=== PATIENT | male | born 1945 | race Two or more races ===

== ENCOUNTER 2017-03-14 05:51 | Day surgery (SDC) | payer MEDICARE, OTHER ==
--- NOTE | 2017-03-13 13:12 | Pre-Procedure Note/Attestation ---
Pre-Procedure Note/Attestation Complete Prior to Procedure Planned Procedure: right Procedure Narrative: . CATARACT EXTRACTION WITH PHACO AND PC IOL IMPLANTATION, RIGHT EYE. 2.MALYUGIN RING INSERTION, RIGHT EYE FOR FLOPPY IRIS SYNDROME. 3.COMPLEX CATARACT , RIGHT EYE Indications for Procedure Pre-Operative Diagnosis: 1. CATARACT ,RIGHT EYE. 2. FLOPPY IRIS SYNDROME,RIGHT EYE 3. COMPLEX CATARACT , RIGHT EYE. Attestation I attest that I discussed the nature of the procedure; its benefits; risks and complications; and alternatives (and the risks and benefits of such alternatives ), prior to the procedure, with the patient (or the patient's legal franchise sales representative). I attest that, if there was a reasonable possibility of needing a blood transfusion, the patient (or the patient's legal franchise sales representative) was given the [facility] standardized written summary, pursuant to the [place] Blood Safety Act ([place] Health and Safety Code # 1645, as amended). I attest that I re-evaluated the patient just prior to the surgery and that there has been no change in the patient's H&P, except as documented below: CHRIS GARCIA Mar 13, 2017 13:12
[2017-03-14] VITALS (9 sets, daily range): BP systolic 127–145; BP diastolic 57–89
[~2017-03-14] VITALS: Ht 160 cm; Wt 59.0 kg
[~2017-03-14 05:51] MED LIST: Diclofenac Sod 0.1% Op Soln ONE; GABAPENTIN600 MG ORAL; NEXIUM40 MG ORAL; Phenylephrine 10% Opth Soln 5ml ONE; Tetracaine 0.5% Opth Soln ONE; Tropicamide 1% Opth Soln ONE; Vigamox Opth Soln ONE
[2017-03-14] MEDS: Phenylephrine 10% Opth Soln 5ml RIGHT EYE SCH ×3 (06:22→06:41)
[2017-03-14] MEDS: Vigamox Opth Soln RIGHT EYE SCH ×3 (06:23→06:42)
[2017-03-14] MEDS: Tetracaine 0.5% Opth Soln RIGHT EYE SCH ×3 (06:23→06:42)
[2017-03-14] MEDS: Diclofenac Sod 0.1% Op Soln RIGHT EYE SCH ×3 (06:23→06:42)
[2017-03-14] MEDS: Tropicamide 1% Opth Soln RIGHT EYE SCH ×3 (06:23→06:42)
[2017-03-14] MEDS ORDERED: acetaZOLAMIDE 125mg tab ORAL ONE (06:30)
[2017-03-14] MEDS ORDERED: BSS 500ml btl ONE (06:58)
[2017-03-14] MEDS ORDERED: Dexamethasone 4mg/ml vial ONE (06:58)
[2017-03-14] MEDS ORDERED: Lidocaine 1% MPF 10mg/ml 5ml ONE (06:58)
[2017-03-14] MEDS ORDERED: Sodium Hyaluronate 10 mg/ml 0.85ml ONE (06:59)
[2017-03-14] MEDS ORDERED: EPINEPHrine 1mg/1ml Amp ONE (06:59)
[2017-03-14] MEDS ORDERED: Carbachol 0.01% Op Soln 1.5ml vial ONE (06:59)
[2017-03-14] MEDS ORDERED: Povidone-Iodine 5% opth solution ONE (06:59)
[2017-03-14] MEDS ORDERED: BSS 15ml BTL ONE (06:59)
[2017-03-14] MEDS ORDERED: NS Irrig 1000ml ONE (07:30)
[2017-03-14] MEDS ORDERED: Sterile Water Irrig 1000ml IRRIG ONE (07:30)
[2017-03-14] MEDS ORDERED: fentaNYL 100 mcg/2 mL IV ONE (07:30)
[2017-03-14] MEDS ORDERED: Midazolam 2mg/2ml Inj ONE (07:30)
[2017-03-14] MEDS ORDERED: Propofol 10mg/ml 20ml IV ONE (07:30)
[2017-03-14] MEDS ORDERED: LR 1000ml 1,000 ML IVLG SCH (07:37)
--- NOTE | 2017-03-14 07:37 | Anethesia Preoperative Eval ---
Anesthesia Pre-op PMH/ROS General Date of Evaluation: Mar 14, 2017 Time of Evaluation: 07:10 Anesthesiologist: Johnie ASA Score: ASA 2 Mallampati Score Class I : Soft palate, uvula, fauces, pillars visible Class II: Soft palate, uvula, fauces visible Class III: Soft palate, base of uvula visible Class IV: Only hard plate visible Mallampati Classification: Class II Surgeon: Chriss Diagnosis: R eye cataract Surgical Procedure: R eye cataract extraction Anesthesia History: none Family History: no anesthesia problems Allergies: Coded Allergies: No Known Allergies (Unverified , 03/13/17) Medications: see eMAR Past Medical History Cardiovascular: Denies: CAD, HTN, [place], arrhythmia, other, valve dz Pulmonary: Denies: COPD, EMA, asthma, other Gastrointestinal/Genitourinary: Reports: GERD, Denies: CRI, ESRD, other Neurologic/Psychiatric: Reports: depression/anxiety, Denies: CVA, TIA, dementia, other Endocrine: Denies: DM, hypothyroidism, other, steroids HEENT: Reports: cataract (L), cataract (R), Denies: [place] (L), [place] (R), glaucoma, other Hematology/Immune: Denies: DVT, anemia, bleeding disorder, other Musculoskeletal/Integumentary: Denies: DDD, DJD, OA, RA, edema, other PMH Narrative: as above PSxH Narrative: prostatectomy Anesthesia Pre-op Phys. Exam Physician Exam Last Vital Signs Date Time Temp Pulse Resp B/P Pulse Ox O2 Delivery O2 Flow Rate FiO2 03/14/17 06:10 97.0 66 18 145/88 99 Room Air Constitutional: NAD Neurologic: CN 2-12 intact Cardiovascular: RRR, no M/R/G Respiratory: CTA Gastrointestinal: S/NT/ND Airway Exam Mallampati Score: Class II MO: full Neck: flexible ROM: full Teeth: intact Dentures: no lower, no upper Anesthesia Pre-op A/P Labs see chart Studies Pre-op Studies: EKG - NSR Risk Assessment & Plan Assessment: ASA 2 Plan: MAC Status Change Before Surgery: No Pre-Antibiotics Drug: none EDUARD NGUYEN M.D. Mar 14, 2017 07:37
[2017-03-14] MEDS ORDERED: DiphenhydrAMINE 50mg/ml Inj IVP PRN (07:45)
[2017-03-14] MEDS ORDERED: fentaNYL 100 mcg/2 mL IV PRN (07:45)
--- NOTE | 2017-03-14 08:04 | Discharge Summary ---
Discharge Summary Discharge Summary Discharge Summary DATE OF ADMISSION: 03/14/2017 DATE OF DISCHARGE: 03/14/2017 REASON FOR HOSPITALIZATION: cataract, right eye SURGERY PERFORMED: cataract extraction with phaco and PC IOL implantation, right eye CONDITION IN THE HOSPITAL:The patient tolerated the surgery without complications. DISCHARGE CONDITION: The patient was stable at discharge. DISCHARGE MEDICATIONS: 1. Vigamox eye drops one drop q.i.d, right eye 2. Prednisolone one drop q.i.d, right eye 3. Acular eye drop, one drop q4h, right eye POSTOPERATIVE ORDERS: The patient has to rest at home. No bending, No lifting, No watching Television tonight. POSTOPERATIVE FOLLOW UP: The patient will be followed in my office tomorrow morning at 7 o'clock. CHRIS GARCIA Mar 14, 2017 08:04
--- NOTE | 2017-03-14 08:08 | Brief Operative Note ---
Immediate Post Operative Note Operative Note Chief Complaint: Blurry vision, difficulty driving and reading, right eye Pre-op Diagnosis: 1. CATARACT ,RIGHT EYE. 2. FLOPPY IRIS SYNDROME,RIGHT EYE 3. COMPLEX CATARACT , RIGHT EYE. Procedure: 1- Cataract extraction with phaco and PC IOL implantation, right eye 2- Malyugin ring insertion for floppy iris syndrome Post-op Diagnosis: same as pre-op Surgeon: Chris Banerjee MD. Family Nurse: None Additional Surgeons: None Anesthesiologist: Dr. dawson Specimen: none Complications: none Condition: stable Estimated Blood Loss: none Drains: none Implant(s) used?: Yes - Monofocal PC IOL implanted in the right eye without complication, right eye CHRIS BANERJEE Mar 14, 2017 08:08
--- NOTE | 2017-03-14 08:28 | Immediate Post-Op Evaluation ---
Immediate Post-Op Evalulation Immediate Post-Op Evalulation Procedure: R eye cataract extraction wth IOL Date of Evaluation: Mar 14, 2017 Time of Evaluation: 08:04 IV Fluids: 300 Blood Products: none Estimated Blood Loss: none Urinary Output: none Blood Pressure Systolic: 116 Blood Pressure Diastolic: 57 Pulse Rate: 62 Respiratory Rate: 20 O2 Sat by Pulse Oximetry: 98 Temperature (Fahrenheit): 97.6 Pain Score (1-10): 2 Nausea: No Vomiting: No Complications none Patient Status: awake, patent, none Hydration Status: adequate EDUARD NGUYEN M.D. Mar 14, 2017 08:28
--- NOTE | 2017-03-14 11:10 | 48 Hour Post Anesthesia Eval ---
Post Anesthesia Evaluation Procedure: R eye cataract extraction [facility] IOL Date of Evaluation: Mar 14, 2017 Time of Evaluation: 11:09 Blood Pressure Systolic: 132 0: 57 Pulse Rate: 72 Respiratory Rate: 21 Temperature (Fahrenheit): 97.5 O2 Sat by Pulse Oximetry: 98 Airway: patent Nausea: No Vomiting: No Pain Intensity: 2 Hydration Status: adequate Cardiopulmonary Status: stable Mental Status/LOC: patient returned to baseline Follow-up Care/Observations: n/a Post-Anesthesia Complications: none Follow-up care needed: ready to discharge EDUARD NGUYEN M.D. Mar 14, 2017 11:10
--- NOTE | 2017-03-14 21:45 | Operative Note - Dictated ---
DATE OF OPERATION: 03/14/2017 FACILITY: [facility]. SURGEON: Luciano Banerjee M.D. EPOXY FABRICATION SUPERVISOR: None. ANESTHESIOLOGIST: Madan Jett M.D. ANESTHESIA: Monitored anesthesia care (MAC) x2. PREOPERATIVE DIAGNOSES: 1. Cataract, right eye. 2. Floppy iris syndrome. POSTOPERATIVE DIAGNOSES: 1. Cataract, right eye. 2. Floppy iris syndrome. SURGERY PERFORMED: 1. Cataract extraction with phacoemulsification posterior chamber intraocular lens implantation in the right eye. 2. Malyugin ring insertion for treatment of floppy iris syndrome, right eye. INDICATION FOR SURGERY: The patient is a 71-year-old gentleman with a history of hypertension, coronary artery disease, angina, asthma, osteoarthritis, and gastroesophageal reflux disease. Benicar, gabapentin, Nexium, Lipitor, vitamin D, and . The patient is not allergic to any medication. The patient is not a smoker and he is not asthmatic. The patient was complaining of blurred vision in the right eye. right eye. Following that, the anterior chamber is clean and quiet. The pupillary reflex is normal. No (____). There is 4+ nuclear sclerosis and cortical cataract in the right eye. On examination of the retina, macula is normal. normal and periphery retina is flat. To improve his vision in the right eye, the cataract has to be removed and posterior chamber intraocular lens has to be implanted. INFORMED CONSENT: The nature of the surgery, risks, benefits, alternatives, and potential complications were explained all in detail to the patient is in his language, Farsi. The potential complications including, but not limited to bleeding, infection, posterior capsular rupture, lens subluxation, flat anterior chamber, iris prolapse, uveitis, corneal edema, macular edema, endophthalmitis, retinal detachment, loss of vision, and even loss of the eye were all explained in detail to the patient in his language, Farsi. The patient voiced understanding and accepted all the complications. The alternatives including accommodating lens, multifocal lens, toric lens, and conventional cataract surgery with limbal relaxing incision (LRI) for treatment of astigmatism were all explained in detail to the patient, voiced understanding. The patient elected to have only conventional cataract surgery in the right eye. Then, he signed the consent form, which is in the chart. DESCRIPTION OF SURGERY AND FINDINGS: Following that, the patient was taken to the operation room in a stable condition. Lidocaine gel Ak[place] 3.5% was applied to the conjunctiva of the right eye. IV sedation was given by the anesthesiologist, Dr. Jett. After adequate anesthesia and sedation had been achieved, the right eye was prepped and draped in the usual sterile fashion for intraocular surgery. Following that, a speculum was placed in the right eye. Following that, using a SuperSharp knife, a clear corneal side port was created. A 1% lidocaine without preservative (MPF) was injected into the anterior chamber. Viscoelastic agent, [place] was injected into the anterior chamber. Following that, using 2.8 mm keratome temporal clear corneal keratotomy was performed. Viscoelastic agent was injected into the anterior chamber again. Following that, Vision Blue was injected under the viscoelastic agent and Malyugin ring was injected into the anterior chamber. The coil after Malyugin ring was injected with for capsulotomy and phacoemulsification. Following that, was removed from the anterior chamber and anterior capsulotomy under the clear new ____ was performed. Following that, was performed ____. Following that, viscoelastic agent was injected into anterior chamber again. Following that, using . Following that . Following that, was injected into the capsular bag. Using a Sinskey hook, the lens was manipulated in the proper position. Following that, all viscoelastic agent was removed from the anterior and posterior part of the lens. Anterior chamber was filled with balanced salt solution and the wounds were hydrated with balanced salt solution. The wound was checked for leakage. There was no leakage. Following that, the patient was transferred to the recovery room. In the recovery room, 125 mg Diamox was given by mouth stat. Postoperative orders and directions were given to the patient. The patient will be discharged home upon stabilization. The patient will be followed in my office tomorrow morning at 6:45 a.m. Luciano Banerjee M.D. DR: BRUNO JOB#: [id number] CC:
== END 2017-03-14 09:45 | disposition home or self-care (01) ==
LOC: SUR 05:51
DX: H25.11 Age-related nuclear cataract, right eye (principal); H25.011 Cortical age-related cataract, right eye; H21.81 Floppy iris syndrome; E11.9 Type 2 diabetes mellitus without complications; I10 Essential (primary) hypertension; I25.119 Atherosclerotic heart disease of native coronary artery with unspecified angina pectoris; J45.909 Unspecified asthma, uncomplicated; K21.9 Gastro-esophageal reflux disease without esophagitis; M19.90 Unspecified osteoarthritis, unspecified site; M54.5 Low back pain; F32.9 Major depressive disorder, single episode, unspecified; F41.9 Anxiety disorder, unspecified; E55.9 Vitamin D deficiency, unspecified; Z90.79 Acquired absence of other genital organ(s)
CPT/HCPCS: 66982; J0171; J1100; J2250; J2704; J3010; V2632; 94003; 94150

== ENCOUNTER 2017-03-28 06:27 | Day surgery (SDC) | payer MEDICARE, OTHER ==
--- NOTE | 2017-03-24 13:56 | Pre-Procedure Note/Attestation ---
Pre-Procedure Note/Attestation Complete Prior to Procedure Planned Procedure: left Procedure Narrative: 1. CATARACT EXTRACTION WITH PHACO AND PC IOL IMPLANTATION, LEFT EYE. 2.MALYUGIN RING INSERTION, LEFT EYE FOR FLOPPY IRIS SYNDROME. 3.COMPLEX CATARACT , LEFT EYE Indications for Procedure Pre-Operative Diagnosis: 1. CATARACT ,LEFT EYE. 2. FLOPPY IRIS SYNDROME ,LEFT EYE 3. COMPLEX CATARACT , LEFT EYE. Attestation I attest that I discussed the nature of the procedure; its benefits; risks and complications; and alternatives (and the risks and benefits of such alternatives ), prior to the procedure, with the patient (or the patient's legal financial service representative). I attest that, if there was a reasonable possibility of needing a blood transfusion, the patient (or the patient's legal financial service representative) was given the [facility] standardized written summary, pursuant to the [place] Blood Safety Act ([place] Health and Safety Code # 1645, as amended). I attest that I re-evaluated the patient just prior to the surgery and that there has been no change in the patient's H&P, except as documented below: CHRIS GARCIA Mar 24, 2017 13:56
[2017-03-28] VITALS (7 sets, daily range): BP systolic 99–142; BP diastolic 70–83
[~2017-03-28] VITALS: Ht 157.5 cm; Wt 61.2 kg
[~2017-03-28 06:27] MED LIST changes: -Diclofenac Sod 0.1% Op Soln ONE; -Phenylephrine 10% Opth Soln 5ml ONE; -Tetracaine 0.5% Opth Soln ONE; -Tropicamide 1% Opth Soln ONE; -Vigamox Opth Soln ONE; +acetaZOLAMIDE 125mg tab ORAL ONE
[2017-03-28] MEDS ORDERED: Vigamox Opth Soln ONE (06:44)
[2017-03-28] MEDS ORDERED: Diclofenac Sod 0.1% Op Soln ONE (06:44)
[2017-03-28] MEDS ORDERED: Phenylephrine 10% Opth Soln 5ml ONE (06:44)
[2017-03-28] MEDS ORDERED: Tropicamide 1% Opth Soln ONE (06:45)
[2017-03-28] MEDS ORDERED: Akten 3.5% 1ml Btl ONE (06:45)
[2017-03-28] MEDS: Akten 3.5% 1ml Btl LEFT EYE SCH ×3 (06:52→07:14)
[2017-03-28] MEDS: Diclofenac Sod 0.1% Op Soln LEFT EYE SCH ×3 (06:52→07:14)
[2017-03-28] MEDS: Vigamox Opth Soln LEFT EYE SCH ×3 (06:53→07:15)
[2017-03-28] MEDS: Tropicamide 1% Opth Soln LEFT EYE SCH ×3 (06:53→07:14)
[2017-03-28] MEDS: Phenylephrine 10% Opth Soln 5ml LEFT EYE SCH ×3 (06:53→07:14)
[2017-03-28] MEDS ORDERED: Propofol 10mg/ml 20ml IV ONE (07:00)
[2017-03-28] MEDS ORDERED: Midazolam 2mg/2ml Inj ONE (07:00)
[2017-03-28] MEDS ORDERED: LR 1000ml ONE (07:00)
[2017-03-28] MEDS ORDERED: NS Irrig 2000ml IRRIG ONE (07:00)
[2017-03-28] MEDS ORDERED: fentaNYL 100 mcg/2 mL IV ONE (07:00)
[2017-03-28] MEDS ORDERED: Sterile Water Irrig 1000ml IRRIG ONE (07:00)
[2017-03-28] MEDS ORDERED: XANAX0.5 MG ORAL (07:20)
--- NOTE | 2017-03-28 07:44 | Anethesia Preoperative Eval ---
Anesthesia Pre-op PMH/ROS General Date of Evaluation: Mar 28, 2017 Time of Evaluation: 07:10 Anesthesiologist: Johnie ASA Score: ASA 2 Mallampati Score Class I : Soft palate, uvula, fauces, pillars visible Class II: Soft palate, uvula, fauces visible Class III: Soft palate, base of uvula visible Class IV: Only hard plate visible Mallampati Classification: Class II Surgeon: Chriss Diagnosis: L eye cataract Surgical Procedure: L eye cataract extraction Anesthesia History: none Family History: no anesthesia problems Allergies: Coded Allergies: No Known Allergies (Unverified , 03/13/17) Medications: see eMAR Past Medical History Cardiovascular: Reports: HTN, Denies: CAD, [place], arrhythmia, other, valve dz Pulmonary: Denies: COPD, EMA, asthma, other Gastrointestinal/Genitourinary: Reports: GERD, Denies: CRI, ESRD, other Neurologic/Psychiatric: Reports: depression/anxiety Endocrine: Denies: DM, hypothyroidism, other, steroids HEENT: Reports: cataract (L), cataract (R), Denies: [place] (L), [place] (R), glaucoma, other Hematology/Immune: Denies: DVT, anemia, bleeding disorder, other Musculoskeletal/Integumentary: Denies: DDD, DJD, OA, RA, edema, other PMH Narrative: as above PSxH Narrative: Prostate Sx, R eye cataract Anesthesia Pre-op Phys. Exam Physician Exam Last Vital Signs Date Time Temp Pulse Resp B/P Pulse Ox O2 Delivery O2 Flow Rate FiO2 03/28/17 06:56 98.5 70 20 142/83 97 Room Air Constitutional: NAD Neurologic: CN 2-12 intact Cardiovascular: RRR, no M/R/G Respiratory: CTA Gastrointestinal: S/NT/ND Airway Exam Mallampati Score: Class II MO: limited Neck: stiff ROM: limited Teeth: missing Dentures: no lower, no upper Anesthesia Pre-op A/P Labs see chart Studies Pre-op Studies: EKG - NSR Risk Assessment & Plan Assessment: ASA2 Plan: MAC Status Change Before Surgery: No Pre-Antibiotics Drug: none EDUARD NGUYEN M.D. Mar 28, 2017 07:44
[2017-03-28] MEDS ORDERED: LR 1000ml 1,000 ML IVLG SCH (07:45)
[2017-03-28] MEDS ORDERED: fentaNYL 100 mcg/2 mL IV PRN (07:45)
[2017-03-28] MEDS ORDERED: DiphenhydrAMINE 50mg/ml Inj IVP PRN (07:45)
--- NOTE | 2017-03-28 08:10 | Discharge Summary ---
Discharge Summary Discharge Summary Discharge Summary DATE OF ADMISSION: 03/28/2017 DATE OF DISCHARGE:03/28/2017 REASON FOR HOSPITALIZATION: cataract, left eye SURGERY PERFORMED: complex cataract, cataract extraction with phaco and PC IOL implantation, left eye CONDITION IN THE HOSPITAL:The patient tolerated the surgery without complications. DISCHARGE CONDITION: The patient was stable at discharge. DISCHARGE MEDICATIONS: 1. Vigamox eye drops one drop q.i.d, left eye 2. Prednisolone one drop q.i.d, left eye 3. Acular one drop q4h, left eye POSTOPERATIVE ORDERS: The patient has to rest at home. No bending, No lifting, No watching Television tonight. POSTOPERATIVE FOLLOW UP: The patient will be followed in my office tomorrow morning at 7 o'clock. CHRIS GARCIA Mar 28, 2017 08:10
--- NOTE | 2017-03-28 08:13 | Brief Operative Note ---
Immediate Post Operative Note Operative Note Chief Complaint: Blurry left eye, difficulty driving and reading, left eye Pre-op Diagnosis: 1. CATARACT ,LEFT EYE. 2. FLOPPY IRIS SYNDROME ,LEFT EYE 3. COMPLEX CATARACT , LEFT EYE. Procedure: 1- Catarct extraction with phaco and PC IOL implantation, left eye 2- Complex cataract Malyugin ring used for floppy iris syndrome, left eye Post-op Diagnosis: same as pre-op Surgeon: Chris Banerjee MD Concrete Mixer Operator: None Additional Surgeons: None Anesthesiologist: Dr Jett Anesthesia: MAC Specimen: none Complications: none Condition: stable Estimated Blood Loss: none Drains: hemovac Implant(s) used?: Yes - Monofocal IOL implanted in the left eye without complication CHRIS BANERJEE Mar 28, 2017 08:13
[2017-03-28] MEDS ORDERED: BSS 500ml btl ONE (08:18)
[2017-03-28] MEDS ORDERED: Povidone-Iodine 5% opth solution ONE (08:18)
[2017-03-28] MEDS ORDERED: Lidocaine 1% MPF 10mg/ml 5ml ONE (08:18)
[2017-03-28] MEDS ORDERED: EPINEPHrine 1mg/1ml Amp ONE (08:18)
[2017-03-28] MEDS ORDERED: BSS 15ml BTL ONE (08:18)
[2017-03-28] MEDS ORDERED: Dexamethasone 4mg/ml vial ONE (08:18)
[2017-03-28] MEDS ORDERED: Sodium Hyaluronate 10 mg/ml 0.85ml ONE (08:19)
--- NOTE | 2017-03-28 08:47 | Immediate Post-Op Evaluation ---
Immediate Post-Op Evalulation Immediate Post-Op Evalulation Procedure: L eye cataract extraction with IOL Date of Evaluation: Mar 28, 2017 Time of Evaluation: 08:10 IV Fluids: 300 Blood Products: nne Estimated Blood Loss: none Urinary Output: none Blood Pressure Systolic: 116 Blood Pressure Diastolic: 57 Pulse Rate: 62 Respiratory Rate: 20 O2 Sat by Pulse Oximetry: 99 Temperature (Fahrenheit): 97.6 Pain Score (1-10): 1 Nausea: No Vomiting: No Complications none Patient Status: awake, patent, none Hydration Status: adequate EDUARD NGUYEN M.D. Mar 28, 2017 08:46
--- NOTE | 2017-03-28 09:09 | 48 Hour Post Anesthesia Eval ---
Post Anesthesia Evaluation Procedure: L eye cataract extraction with IOL Date of Evaluation: Mar 28, 2017 Time of Evaluation: 09:08 Blood Pressure Systolic: 133 0: 58 Respiratory Rate: 17 O2 Sat by Pulse Oximetry: 98 Airway: patent Nausea: No Vomiting: No Pain Intensity: 1 Cardiopulmonary Status: stable Mental Status/LOC: patient returned to baseline Follow-up Care/Observations: n/a Post-Anesthesia Complications: none Follow-up care needed: ready to discharge EDUARD NGUYEN M.D. Mar 28, 2017 09:09
--- NOTE | 2017-03-28 21:30 | Pre-op HX & Phy Repo 2 SIG ---
DATE OF ADMISSION: 03/28/2017 REASON FOR EVALUATION: I was asked by Dr. Luciano Banerjee to see this 71-year-old male, who is going for elective surgery on the left eye. The patient has a cataract, left eye. Please see the full ophthalmology H and P by Dr. Luciano Banerjee. The patient was examined. Chart was reviewed. Son at bedside to help with history. PAST MEDICAL HISTORY: Remarkable for history of hypertension, benign prostatic hypertrophy, hyperlipidemia, anxiety, and depression. Denies history of heart attack, chest pain or palpitations. No history of stroke or seizures. Denies history of diabetes mellitus or thyroid problem. No respiratory problem. Denies history of renal failure or renal stones. No hepatitis. The patient has a history of heartburn and GERD. Denied respiratory problem. No anemia. PAST SURGICAL HISTORY: Remarkable for right eye cataract 2 weeks ago, history of right inguinal hernia repair, and history of TURP. ALLERGIES: Not known. FAMILY HISTORY: Both parents from cancer. MEDICATIONS: Present medications include naproxen with combination of esomeprazole, Nexium 40 mg, and Xanax. HABITS: The patient denies history of smoke or alcohol habit. No street drugs. PHYSICAL EXAMINATION: GENERAL: Alert, well-developed, well-nourished, male in his 70s, no acute distress. VITAL SIGNS: Blood pressure 142/83, temperature 98.5, pulse 70 and regular, respirations 18, and O2 saturation 97% on room air. SKIN: Warm. No diaphoresis. No rashes. LYMPHATICS: Lymph nodes not enlarged. HEENT: Head, normocephalic. Ears, clear. Eyes, full description per Dr. Luciano Banerjee. No conjunctivitis. Mouth, clear and moist. No dentures. NECK: Supple. No jugular vein distention. Carotids artery 2+. Trachea is midline. CHEST: No deformity or asymmetry. LUNGS: Clear to auscultation and percussion. No rales or rhonchi. No wheezing. HEART: Sinus rhythm. No ectopy. No murmur. No S3 or S4. ABDOMEN: Soft. No rebound. No palpable mass. EXTREMITIES: No calf tenderness. No varicose veins. No deformity. GENITOURINARY: Normal for gender. CVA nontender. Occasional urine retention. NEUROLOGIC: No tremor. No nystagmus. No asymmetry. Cranial nerves II through XII in normal limits. DIAGNOSTIC AND LABORATORY DATA: ECG done on the patient shows sinus rhythm with left axis deviation. Laboratory dated 02/27/2017 on the patient in normal limits. hemoglobin of 15.3, hematocrit 47.7, and white blood cells 548. Sodium 143, potassium 4.5, and blood sugar 108. The patient did not eat or drink from last night. IMPRESSION: 1. Cataract, left eye. 2. Hypertension, controlled. 3. Benign prostatic hypertrophy. 4. Gastroesophageal reflux disease. 5. Hyperlipidemia. 6. Anxiety and depression. PLAN: Cataract extraction, left eye with intraocular lens implant per Dr. Luciano Banerjee. CONCLUSION: The patient's vital signs are stable. The patient did not eat or drink from last night. Laboratory in normal limits and EKG is also normal limits. The patient's condition optimized for surgery. Thank you very much, Dr. Banerjee, for privilege to participate in presurgical care of this interesting patient. Delta Becker M.D. DR: DARLYN JOB#: [id number] CC:
--- NOTE | 2017-03-28 22:15 | Operative Note - Dictated ---
DATE OF OPERATION: 03/28/2017 FACILITY: [facility]. SURGEON: Luciano Banerjee M.D. PEST CONTROL SERVICE TECHNICIAN: None. ANESTHESIOLOGIST: Madan Jett M.D. ANESTHESIA: Monitored anesthesia care (MAC). PREOPERATIVE DIAGNOSES: 1. Cataract, left eye. 2. Floppy iris syndrome (complex cataract). POSTOPERATIVE DIAGNOSES: 1. Cataract, left eye. 2. Floppy iris syndrome (complex cataract). SURGERY PERFORMED: 1. Cataract extraction with phacoemulsification and posterior chamber intraocular lens implantation in the left eye. 2. Malyugin ring insertion for treatment of floppy iris syndrome. INDICATION FOR SURGERY: The patient is a 71-year-old gentleman with history of hypertension, coronary artery disease, angina, asthma, osteoarthritis, and gastroesophageal reflux disease. He is taking Benicar, gabapentin, Nexium, Lipitor, vitamin D, and calcium. The patient is not allergic to any medication and the patient is not a smoker and he is not asthmatic. The patient is complaining of blurry vision in the left eye. On examination of the left eye, the cornea is clear. Anterior chamber is clean and quiet. Pupillary reflex is normal. There is no RAPD. There is 4+ nuclear sclerosis and 3+ cortical cataract in the left eye. On examination, the retina and macula are normal, and peripheral retina is flat. To improve his vision in the left eye, the cataract has to be removed and posterior chamber intraocular lens has to be implanted. INFORMED CONSENT: The nature of the surgery, risks, benefits, alternatives, and potential complications were explained all in detail to the patient in his language, Farsi. The potential complications including, but not limited to bleeding, infection, posterior capsular rupture, lens subluxation, flat anterior chamber, iris prolapse, uveitis, corneal edema, macular edema, endophthalmitis, retinal detachment, loss of vision, and even loss of the eye were all explained in detail to the patient in his language, Farsi. The patient voiced understanding and accepted all the complications. The alternatives including accommodating lens, multifocal lens, toric lens, and conventional cataract surgery with limbal relaxing incision for treatment of astigmatism were all explained in detail to the patient. The patient voiced understanding. The patient elected to have only conventional cataract surgery in the left eye. Then, he signed a consent form, which is in the chart. He had cataract surgery in the right eye 2 weeks ago and he is happy with the result. DESCRIPTION OF SURGERY AND FINDINGS: Following that, the patient was taken to the operation room in a stable condition. Lidocaine gel Akten 3.5% was applied to the conjunctiva of the left eye. IV sedation was given by the anesthesiologist, Dr. Jett. After adequate anesthesia and sedation had been achieved, the left eye was prepped and draped in a sterile fashion for intraocular surgery. Following that, a speculum was placed in the left eye. Following that, using a SuperSharp knife, a clear corneal side port was created. A 1% lidocaine without preservative (MPF) was injected into the anterior chamber. Viscoelastic agent Healon was injected into the anterior chamber. Following that, using 2.8 mm keratome, temporal clear corneal corticectomy was performed. Viscoelastic agent was injected into the anterior chamber again. Following that, Malyugin ring was inserted into the anterior chamber. Following that, the coils of the Malyugin ring were engaged with the pupils and sphincter. A nasim-shaped space was created for safe phacoemulsification. Following that, Vision Blue was injected under the viscoelastic agent to stain the anterior capsule. Following that, clear fresh viscoelastic agent was injected into the anterior chamber again. Following that, under the viscoelastic agent, an anterior capsulotomy was performed in the fashion of capsulorrhexis beautifully. Following that, whole viscoelastic agent was removed from the anterior chamber. Following that, using balanced salt solution, hydrodissection and hydrodelineation was performed and the nucleus was freed. Following that, the viscoelastic agent Healon was injected into the anterior chamber for protection of the endothelium the cornea. Following that, using phacoemulsification machine in the fashion of horizontal chop, the nucleus was removed in toto. Following that, using irrigation/aspiration unit cortical material was removed from the capsular bag and the capsular bag was polished. Following that, the capsular bag was filled with viscoelastic agent Healon. Following that, a +25 diopter ZCB00 foldable PC IOL was injected into the capsular bag. Using a Sinskey hook, the lens was manipulated and put in the proper position. Following that, the viscoelastic agent was removed from the capsular bag and the capsular bag was polished. Following that, the anterior chamber was filled with balanced salt solution. Following that, the wound was hydrated with balanced salt solution. The wound was checked for leakage, and there was no leakage. Vigamox eye drops were applied to the conjunctiva, left eye. The patient tolerated the surgery without complications. At the end of the surgery, the eye was patched with a clear sterile fenestrated shield. Following that, the patient was transferred to the recovery room. In the recovery room, 125 mg Diamox was given by mouth stat. Postoperative orders and directions were given to the patient. The patient will be discharged home upon stabilization. The patient will be followed in my office tomorrow morning. Luciano Banerjee M.D. DR: BRUNO JOB#: [id number] CC:
== END 2017-03-28 09:15 | disposition home or self-care (01) ==
LOC: SUR 06:27
DX: H25.12 Age-related nuclear cataract, left eye (principal); H25.012 Cortical age-related cataract, left eye; H21.81 Floppy iris syndrome; I10 Essential (primary) hypertension; N40.0 Benign prostatic hyperplasia without lower urinary tract symptoms; E78.5 Hyperlipidemia, unspecified; K21.9 Gastro-esophageal reflux disease without esophagitis; I25.10 Atherosclerotic heart disease of native coronary artery without angina pectoris; J45.909 Unspecified asthma, uncomplicated; M19.90 Unspecified osteoarthritis, unspecified site; F32.9 Major depressive disorder, single episode, unspecified; F41.9 Anxiety disorder, unspecified
CPT/HCPCS: 66982; J0171; J1100; J2250; J2704; J3010; J7120; V2632; 94003; 94150